=== PATIENT | female | born 1955 | race American Indian/Alaskan Native ===

== ENCOUNTER 2020-01-07 09:16 | Outpatient (CLI) | payer BC, SELFPAY ==
--- NOTE | ~2020-01-07 | US_ITS ---
EXAMINATION: US thyroid EXAM DATE: 01/07/2020 09:46 INDICATION: Nontoxic goiter. TECHNIQUE: Multiple grayscale and Doppler images of the thyroid were obtained (by a technologist who performed the scan) and subsequently reviewed. Individual nodules and recommendations may be reporte d in accordance with TI-RADS system as designated by the 2017 ACR White Paper TI-RADS committee. Comp aristidesson is made to prior examination from 08/05/2017. FINDINGS: The right thyroid lobe measures 4.6 x 2.0 x 1.4 cm, the left measuring 4.0 x 1.5 x 1.1 cm. These dime nsions are mildly enlarged. There are scattered small thyroid nodules. The largest thyroid nodule is in the right thyroid lobe midpole superficially measuring 0.8 x 1.2 x 1 .1 cm centimeters, solid (2 points), hypoechoic (2 points), wider than tall, smooth margin, without e chogenic foci, category TR4 for this nodule. This is unchanged compared to 2018 exam. IMPRESSION: 1. Multinodular goiter, unchanged. 2. Largest nodule demonstrating 2 years 5 months stability, likely benign. Consider additional follo w up in 2 years. Reviewed, dictated and finalized at location A. IMPRESSION: 1. Multinodular goiter, unchanged. 2. Largest nodule demonstrating 2 years 5 months stability, likely benign. Con leadership recruiter additional follow up in 2 years.
== END 2020-01-07 09:17 | disposition home or self-care (01) ==
PROVIDERS: PCP Family Medicine; Visit Provider Internal Medicine Endocrinology, Diabetes & Metabolism
DX: E04.9 Nontoxic goiter, unspecified (principal)
CPT/HCPCS: 76536

== ENCOUNTER 2020-12-30 15:31 | Outpatient (CLI) | payer BC, SELFPAY ==
[2020-12-30 16:57] LABS: Free T4 Free Thyroxine 0.96 ng/mL (0.78-2.19)
== END 2020-12-30 15:32 | disposition home or self-care (01) ==
LOC: ANHWCLAB 15:32
PROVIDERS: PCP Family Medicine; Visit Provider Internal Medicine Endocrinology, Diabetes & Metabolism
DX: E04.1 Nontoxic single thyroid nodule (principal)
CPT/HCPCS: 36415; 84439; 84443

== ENCOUNTER 2023-04-24 08:04 | Outpatient (CLI) | payer MEDICARE, SELFPAY ==
--- NOTE | ~2023-04-24 | US_ITS ---
EXAMINATION: US thyroid DATE: 04/24/2023 08:43 INDICATION: Nontoxic single thyroid nodule TECHNIQUE: Multiple ultrasound images of the thyroid were obtained. COMPARISON: 01/07/2020 FINDINGS: The right thyroid lobe measures 4.4 x 1.8 x 1.8 cm. The left thyroid lobe measures 4.2 x 1.6 x 1.4 c m. No significant interval change in a 1.3 cm predominantly solid hypoechoic nodule which is wider t eddy tall with mildly lobular contour with and without echogenic foci (TI-RADS 4, moderately suspiciou s , FNA if >=1.5 cm, annual followup is >=1 cm) in the right thyroid lobe. Additional 5 mm wider than tall solid hypoechoic nodule with smooth margins and without echogenic foci, also TI RADS 4 in the l ateral left thyroid. There are <4 mm likely colloid cysts which are anechoic with single internal ech ogenic foci, 2 in the left thyroid and one in the right thyroid. There is normal echotexture, echogen icity and vascular flow throughout the remainder of the thyroid gland. IMPRESSION: 1. Multinodular goiter with no interval change in the largest 1.3 cm TI RADS right thyroid nodule. Re commend continued annual ultrasound follow-up. Reviewed, dictated and finalized at location A. TRUCTION SAFETY CONSULTANT IMPRESSION: 1. Multinodular goiter with no interval change in the largest 1.3 cm TI RADS ri ght thyroid nodule. Recommend continued annual ultrasound follow-up.
--- NOTE | ~2023-04-24 | DEXA_ITS ---
Bone Density Report Name: DEE MCCARTNEY Age: 67 Sex: Female Ethnicity: White Date of : 1955 Indication: postmenopausal; screening for osteoporosis; height loss; hysterectomy; rheumatoid arthritis; Referring Provider: MICHAEL JO Study: Bone densitometry was performed. Exam Date: April 24, 2023 Accession number: [id number] Bone Density: Region BMD T-score Z-score Classification AP Spine(L1-L4) 0.928 -1.1 0.7 Osteopenia Femoral Neck (Left) 0.642 -1.9 -0.3 Osteopenia Total Hip (Left) 0.804 -1.1 0.1 Osteopenia Femoral Neck (Right) 0.611 -2.1 -0.6 Osteopenia Total Hip (Right) 0.753 -1.6 -0.3 Osteopenia Total Hip Mean 0.778 -1.4 -0.1 Osteopenia World Health Organization criteria for BMD impression classify patients as: Normal (T-score at or above -1.0), Osteopenia (T-score between -1.0 and -2.5), or Osteoporosis (T-score at or below -2.5). 10-year Fracture Risk(1): Major Osteoporotic Fracture 14% Hip Fracture 2.4% Reported Risk Factors: [place] (), Neck BMD=0.611, BMI=32.2, rheumatoid arthritis (1) FRAX(R) Version 3.08. Fracture probability calculated for an untreated patient. Fracture probability may be lower if the patient has received treatment. Clinical Information Provided by Patient: Has rheumatoid arthritis Has used the following medications: Vitamin D Has the following medical conditions: Hysterectomy Patient maximum height was 65 Menopause Age: 26 Onset of menses at age 14 Number of children 1 Impression: The patient has low bone mass, based on the Right Femoral Neck T-score. The patient has an estimated ten-year risk of hip fracture of 2.4% and an estimated ten-year risk of major fracture of 14%, based on the WHO FRAX algorithm. Discussion: BONE DENSITY IS LOW AT ONE OR MORE SKELETAL SITES. This patient's lowest T-score is low at one or more skeletal sites. It meets the World Health Organization's (WHO) criteria for ?low bone mass? (T-score between -1.0 and -2.5). The patient's 10-year risk of fracture as calculated by FRAX is less than the threshold where pharmacological therapy is recommended by the National Osteoporosis Foundation (NOF). However, all treatment decisions require clinical judgment and consideration of individual patient factors, including patient preferences, comorbidities, previous drug use, risk factors not captured in the FRAX model (e.g., frailty, falls, vitamin D deficiency, increased bone turnover, interval significant decline in bone density) and possible under or overestimation of fracture risk by FRAX. The patient should follow a healthful lifestyle (good nutrition with adequate calcium and vitamin D, and appropriate weight-bearing exercise). Follow-Up: Consider repeating this study in 2 to 3 years to reassess this patient's sta
== END 2023-04-24 08:05 | disposition home or self-care (01) ==
PROVIDERS: Visit Provider Internal Medicine Endocrinology, Diabetes & Metabolism
DX: M81.0 Age-related osteoporosis without current pathological fracture (principal); E04.2 Nontoxic multinodular goiter; M85.852 Other specified disorders of bone density and structure, left thigh; M85.851 Other specified disorders of bone density and structure, right thigh; M85.88 Other specified disorders of bone density and structure, other site
CPT/HCPCS: 76536; 77080